=== PATIENT | male | born 2005 | race Caucasian/White ===

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

== ENCOUNTER 2024-02-16 10:01 | Emergency (ER) | payer OTHER ==
[~2024-02-16] VITALS: Ht 177.8 cm; Wt 115.4 kg
[2024-02-16 10:01] VITALS: O2SAT 98
[~2024-02-16 10:01] MED LIST changes: +DICY-61 PO; -DICY10CA13 PO; +MONT-5 PO; +RISP-105 PO; -RISP-7; -RISP-8 PO; +RISP0.5T82; -SING10TA32 PO; +TOPI-21 PO; -TOPI50TA9 PO
[2024-02-16] MEDS ORDERED: ACET-683 PO (10:18)
[2024-02-16 11:09] LABS: RSV AMPLIFICATION NEGATIVE (NEGATIVE)
[2024-02-16] MEDS: ONDANSETRON 4MG ORAL DISINTEGRATING TAB PO ONE (12:14)
[2024-02-16 12:38] LABS: BASO # 0.1 10^3/uL (0.0-0.2); BASO % 0.6 % (0.0-1.0); EOS % 0.2 % (0.0-3.0); HEMATOCRIT 45.2 % (42.0-52.0); HEMOGLOBIN 15.3 g/dl (13.5-17.5); LYMPH # 2.5 10^3/uL (1.5-5.0); LYMPH % 29.7 % (24.0-44.0); MEAN CORPUSCULAR HEMOGLOBIN 28.9 pg (27.0-33.0); MEAN CORPUSCULAR HGB CONC 33.8 g/dl (32.0-36.5); MEAN CORPUSCULAR VOLUME 85.3 fl (80.0-96.0); MONO # 0.5 10^3/uL (0.0-0.8); MONO % 6.4 % (2.0-8.0); NEUTROPHILS # 5.2 10^3/uL (1.5-8.5); NEUTROPHILS % 62.5 % (36.0-66.0); PLATELET COUNT, AUTOMATED 255 10^3/uL (150-450); WHITE BLOOD COUNT 8.3 10^3/uL (4.0-10.0)
[2024-02-16 13:03] LABS: ALBUMIN 4.1 G/DL (3.2-5.2); ALKALINE PHOSPHATASE 70 U/L (46-116); ALT/SGPT 32 U/L (7.0-40); AST/SGOT 17 U/L (<34); BILIRUBIN,TOTAL 0.6 MG/DL (0.3-1.2); BLOOD UREA NITROGEN 15 MG/DL (9-23); CALCIUM LEVEL 9.3 MG/DL (8.5-10.1); CARBON DIOXIDE LEVEL 24 MMOL/L (20-31); CHLORIDE LEVEL 107 MMOL/L (98-107); CREATININE FOR GFR 1.02 MG/DL (0.70-1.30); GLUCOSE, FASTING 95 MG/DL (60-100); POTASSIUM SERUM 4.2 MMOL/L (3.5-5.1); SODIUM LEVEL 138 MMOL/L (136-145); TOTAL PROTEIN 6.8 G/DL (5.7-8.2)
[2024-02-16] MEDS ORDERED: ONDA4TAB6 PO (13:10)
[2024-02-16 13:29] VITALS: BP 140/78; TEMP 97.8
== END 2024-02-16 13:30 | disposition home or self-care (01) ==
LOC: M ED 10:01
DX: R19.7 Diarrhea, unspecified (principal); B34.8 Other viral infections of unspecified site; Z79.1 Long term (current) use of non-steroidal anti-inflammatories (NSAID); Z79.899 Other long term (current) drug therapy

== ENCOUNTER 2024-11-19 12:41 | Emergency (ER) | payer OTHER, SELFPAY ==
[~2024-11-19] VITALS: Ht 177.8 cm; Wt 90.1 kg
[~2024-11-19 12:41] MED LIST changes: +ACET-683 PO; +ONDA-282 PO; -ONDA4TAB6 PO
[2024-11-19 12:57] VITALS: BP 141/79; TEMP 97.2; O2SAT 98
[2024-11-19] MEDS ORDERED: KEPP1TAB PO (18:55)
[2024-11-19] MEDS ORDERED: ZONI50CA11 PO (18:55)
== END 2024-11-19 14:57 | disposition left against medical advice (07) ==
LOC: EDUNIT# 12:41 → EDBD 12:41 → M ED 12:41
DX: Z53.21 Procedure and treatment not carried out due to patient leaving prior to being seen by health care provider (principal)

== ENCOUNTER 2024-11-19 17:33 | Inpatient (IN) | payer MEDICAID, OTHER, SELFPAY ==
[~2024-11-19] VITALS: Ht 172.7 cm; Wt 89.9 kg
[2024-11-19 18:21] LABS: HEMOGLOBIN 15.9 g/dl (13.5-17.5); MEAN CORPUSCULAR HEMOGLOBIN 28.9 pg (27.0-33.0); MEAN CORPUSCULAR HGB CONC 33.8 g/dl (32.0-36.5); MEAN CORPUSCULAR VOLUME 85.3 fl (80.0-96.0); PLATELET COUNT, AUTOMATED 282 10^3/uL (150-450); RED BLOOD COUNT 5.51 10^6/uL (4.30-6.10); WHITE BLOOD COUNT 11.6 10^3/uL (4.0-10.0)
[2024-11-19 18:42] LABS: AMPHETAMINES LEVEL URINE NEGATIVE (NEGATIVE); BARBITURATES URINE NEGATIVE (NEGATIVE); BENZODIAZEPINES URINE NEGATIVE (NEGATIVE); COCAINE METABOLITE URINE NEGATIVE (NEGATIVE); METHADONE URINE NEGATIVE (NEGATIVE); OPIATES URINE NEGATIVE (NEGATIVE); PHENCYCLIDINE URINE NEGATIVE (NEGATIVE)
[2024-11-19 18:44] LABS: ETHYL ALCOHOL (ETHANOL) < 0.003 % (0.000-0.010)
[2024-11-19 18:45] LABS: CANNABINOIDS URINE POSITIVE (NEGATIVE)
[2024-11-19 18:46] LABS: ALBUMIN 4.4 G/DL (3.2-5.2); ALKALINE PHOSPHATASE 80 U/L (40-129); ALT/SGPT 19 U/L (7.0-40); AST/SGOT 15 U/L (<34); BILIRUBIN,DIRECT 0.3 MG/DL (<0.4); BILIRUBIN,TOTAL 0.9 MG/DL (0.3-1.2); BLOOD UREA NITROGEN 23 MG/DL (9-23); CALCIUM LEVEL 9.2 MG/DL (8.5-10.1); CARBON DIOXIDE LEVEL 23 MMOL/L (20-31); CHLORIDE LEVEL 104 MMOL/L (98-107); CREATININE FOR GFR 1.07 MG/DL (0.70-1.30); GLUCOSE, FASTING 82 MG/DL (60-100); POTASSIUM SERUM 4.5 MMOL/L (3.5-5.1); SALICYLATE LEVEL < 3.0 MG/DL (<30); SODIUM LEVEL 139 MMOL/L (136-145); TOTAL PROTEIN 7.4 G/DL (5.7-8.2)
[2024-11-19 18:48] LABS: THYROID STIMULATING HORMONE 1.403 uIU/ML (0.48-4.17)
[2024-11-19] MEDS ORDERED: KEPP1TAB PO (18:55)
[2024-11-19] MEDS ORDERED: HOME MED LIST COMPLETE! XX SCH (18:55)
[2024-11-19] MEDS ORDERED: ZONI50CA11 PO (18:55)
[2024-11-19] MEDS ORDERED: ACETAMINOPHEN 325 MG TAB PO PRN (21:00)
[2024-11-19] MEDS ORDERED: LORazepam 1 MG TAB PO PRN (21:00)
[2024-11-19] MEDS ORDERED: IBUPROFEN 400MG TAB PO PRN (21:00)
[2024-11-19] MEDS ORDERED: diphenhydrAMINE 25MG CAP PO PRN (21:00)
[2024-11-19] MEDS ORDERED: MAALOX 30 ML SUSP *UDC PO PRN (21:00)
[2024-11-19] MEDS ORDERED: MOM 30ML SUSPENSION UDC PO PRN (21:00)
[2024-11-20 06:12] VITALS: BP 125/57; TEMP 97.8; O2SAT 97
[2024-11-20] MEDS: NICOTINE 14 MG/24 HR TRANSDERMAL TD SCH (09:18)
[2024-11-20] MEDS: levETIRAcetam 250MG TABLET (KEPPRA) PO SCH (09:18)
[2024-11-20] MEDS: ZONISAMIDE 50 MG CAP (ZONEGRAN) PO SCH (09:24)
[2024-11-20 15:43] VITALS: BP 136/70; TEMP 97.9; O2SAT 100
[2024-11-20] MEDS: LURASIDONE 20 MG TAB (LATUDA) PO SCH (18:21)
[2024-11-21 14:52] VITALS: BP 131/73; TEMP 98; O2SAT 100
[2024-11-21] MEDS: traZODone 50 MG TAB PO PRN (21:09)
[2024-11-22 06:46] VITALS: BP 110/67; TEMP 97.3; O2SAT 100
[2024-11-22 17:04] VITALS: BP 136/77; TEMP 98; O2SAT 96
[2024-11-23 06:47] VITALS: BP 126/73; TEMP 96.9; O2SAT 100
[2024-11-23 14:08] VITALS: BP 152/79; TEMP 97.6; O2SAT 100
[2024-11-23 14:25] VITALS: BP 161/76; TEMP 97.5; O2SAT 100
[2024-11-23] MEDS: LORazepam 2 MG/ML 1ML VIAL IM ONE (14:37)
[2024-11-23] MEDS: LORazepam 2 MG TAB PO ONE (14:45)
[2024-11-23 16:04] VITALS: BP 141/78; TEMP 97.4
[2024-11-24 06:48] VITALS: BP 115/53; TEMP 97; O2SAT 100
[2024-11-24 15:52] VITALS: BP 146/78; TEMP 97.7; O2SAT 99
[2024-11-24] MEDS: OLANZapine ORAL DISINTEGRATING TAB 5MG PO PRN (19:08)
[2024-11-25] MEDS: diphenhydrAMINE 50MG/ML VIAL IM STA (11:14)
[2024-11-25] MEDS: LORazepam 2 MG/ML 1ML VIAL IM STA (11:15)
[2024-11-25] MEDS: HALOPERIDOL LACTATE 5MG/ML VIAL IM STA ×2 (11:15→11:31)
[2024-11-25 13:00] VITALS: BP 118/60; TEMP 97.4; O2SAT 100
[2024-11-25 13:15] VITALS: BP 122/63; TEMP 97.2; O2SAT 100
[2024-11-25 17:19] VITALS: BP 123/73; TEMP 97.9; O2SAT 99
[2024-11-26 06:40] VITALS: BP 127/57; TEMP 97.5; O2SAT 100
[2024-11-26] MEDS ORDERED: TRAZ-252 PO (10:17)
[2024-11-26] MEDS ORDERED: OLAN5ZYD PO (10:17)
[2024-11-26] MEDS ORDERED: HYDR-3363 PO (10:17)
[2024-11-26] MEDS ORDERED: LATU20TA PO (10:17)
[2024-11-27] MEDS ORDERED: TRAZ-252 PO (11:09)
[2024-11-27] MEDS ORDERED: HYDR-3363 PO (11:09)
[2024-11-27] MEDS ORDERED: LATU20TA PO (11:09)
[2024-11-27] MEDS ORDERED: OLAN5ZYD PO (11:09)
== END 2024-11-26 14:04 | disposition home or self-care (01) | DRG 753 ==
LOC: M ED 17:33 → M ED INP 20:58 → M PSY 21:36
PROVIDERS: ADMIT Psychiatry & Neurology Neurology; ATTEND Psychiatry & Neurology Neurology
DX: F31.81 Bipolar II disorder (principal); F41.9 Anxiety disorder, unspecified; F60.3 Borderline personality disorder; G40.909 Epilepsy, unspecified, not intractable, without status epilepticus; R45.851 Suicidal ideations; F17.210 Nicotine dependence, cigarettes, uncomplicated; D72.829 Elevated white blood cell count, unspecified

== ENCOUNTER 2024-11-26 20:34 | Inpatient (IN) | payer MEDICAID, SELFPAY ==
[~2024-11-26] VITALS: Ht 162.6 cm; Wt 87.6 kg
[~2024-11-26 20:34] MED LIST changes: +HYDR-3363 PO; +KEPP1TAB PO; +LATU20TA PO; +OLAN5ZYD PO; +TRAZ-252 PO; +ZONI50CA11 PO
[2024-11-27] MEDS: ONDANSETRON 4MG 2ML VIAL IV ONE (05:57)
[2024-11-27 06:07] LABS: BASO % 0.3 % (0.0-1.0); EOS # 0.1 10^3/uL (0.0-0.5); EOS % 0.6 % (0.0-3.0); HEMATOCRIT 40.2 % (42.0-52.0); HEMOGLOBIN 13.5 g/dl (13.5-17.5); LYMPH # 3.4 10^3/uL (1.5-5.0); LYMPH % 35.7 % (24.0-44.0); MEAN CORPUSCULAR HGB CONC 33.6 g/dl (32.0-36.5); MEAN CORPUSCULAR VOLUME 86.5 fl (80.0-96.0); MONO # 0.6 10^3/uL (0.0-0.8); MONO % 6.3 % (2.0-8.0); NEUTROPHILS # 5.3 10^3/uL (1.5-8.5); NEUTROPHILS % 56.6 % (36.0-66.0); PLATELET COUNT, AUTOMATED 230 10^3/uL (150-450); RED BLOOD COUNT 4.65 10^6/uL (4.30-6.10); WHITE BLOOD COUNT 9.4 10^3/uL (4.0-10.0)
[2024-11-27] MEDS: ZONISAMIDE 25MG CAP (ZONEGRAN) PO STA (06:18)
[2024-11-27 06:30] LABS: BLOOD UREA NITROGEN 10 MG/DL (9-23); CALCIUM LEVEL 8.6 MG/DL (8.5-10.1); CARBON DIOXIDE LEVEL 27 MMOL/L (20-31); CHLORIDE LEVEL 108 MMOL/L (98-107); CREATININE FOR GFR 1.08 MG/DL (0.70-1.30); GLUCOSE, FASTING 86 MG/DL (60-100); MAGNESIUM LEVEL 1.8 MG/DL (1.8-2.4); POTASSIUM SERUM 3.9 MMOL/L (3.5-5.1); SODIUM LEVEL 143 MMOL/L (136-145)
[2024-11-27 06:40] LABS: ETHYL ALCOHOL (ETHANOL) < 0.003 % (0.000-0.010)
[2024-11-27 06:41] LABS: SALICYLATE LEVEL < 3.0 MG/DL (<30)
[2024-11-27 06:44] LABS: THYROID STIMULATING HORMONE 1.964 uIU/ML (0.48-4.17)
[2024-11-27] MEDS: levETIRAcetam 250MG TABLET (KEPPRA) PO ONE (08:11)
[2024-11-27] MEDS ORDERED: OLANZapine 5 MG TAB PO PRN (09:35)
[2024-11-27] MEDS ORDERED: traZODone 50 MG TAB PO PRN (09:35)
[2024-11-27 10:49] LABS: AMPHETAMINES LEVEL URINE NEGATIVE (NEGATIVE); BARBITURATES URINE NEGATIVE (NEGATIVE); BENZODIAZEPINES URINE NEGATIVE (NEGATIVE)
[2024-11-27 10:50] LABS: COCAINE METABOLITE URINE NEGATIVE (NEGATIVE); METHADONE URINE NEGATIVE (NEGATIVE); OPIATES URINE NEGATIVE (NEGATIVE); PHENCYCLIDINE URINE NEGATIVE (NEGATIVE)
[2024-11-27 11:09] LABS: CANNABINOIDS URINE POSITIVE (NEGATIVE)
[2024-11-27] MEDS ORDERED: OLAN5ZYD PO (11:09)
[2024-11-27] MEDS ORDERED: HYDR-3363 PO (11:09)
[2024-11-27] MEDS ORDERED: TRAZ-252 PO (11:09)
[2024-11-27] MEDS ORDERED: LATU20TA PO (11:09)
[2024-11-27] MEDS ORDERED: HOME MED LIST COMPLETE! XX SCH (11:10)
[2024-11-27] MEDS: LURASIDONE 20 MG TAB (LATUDA) PO SCH (11:40)
[2024-11-27 17:50] VITALS: BP 140/86; TEMP 96.9; O2SAT 100
[2024-11-27] MEDS: IBUPROFEN 400MG TAB PO ONE (19:23)
[2024-11-27] MEDS ORDERED: MOM 30ML SUSPENSION UDC PO PRN (19:30)
[2024-11-27] MEDS ORDERED: ACETAMINOPHEN 325 MG TAB PO PRN (19:30)
[2024-11-27] MEDS ORDERED: diphenhydrAMINE 25MG CAP PO PRN (19:30)
[2024-11-27] MEDS: MAALOX 30 ML SUSP *UDC PO PRN (20:34)
[2024-11-27] MEDS: traZODone 50 MG TAB PO PRN (20:34)
[2024-11-27] MEDS ORDERED: ZONISAMIDE 50 MG CAP (ZONEGRAN) PO SCH (21:00)
[2024-11-27] MEDS ORDERED: levETIRAcetam 250MG TABLET (KEPPRA) PO SCH (21:00)
[2024-11-28 06:23] VITALS: BP 116/75; TEMP 97.8; O2SAT 95
[2024-11-28] MEDS: levETIRAcetam 250MG TABLET (KEPPRA) PO SCH (12:01)
[2024-11-28] MEDS: LURASIDONE 20 MG TAB (LATUDA) PO SCH (12:01)
[2024-11-28] MEDS: ZONISAMIDE 50 MG CAP (ZONEGRAN) PO SCH (14:18)
[2024-11-28] MEDS: NICOTINE 21MG/24HR 1 EA TRANSDERMAL TD SCH (15:35)
[2024-11-28 16:18] VITALS: BP 143/68; TEMP 97.7; O2SAT 100
[2024-11-28] MEDS: OMEPRAZOLE 20MG CAP PO SCH (20:21)
[2024-11-29 06:56] VITALS: BP 119/64; TEMP 97.1; O2SAT 97
[2024-11-29 16:31] VITALS: BP 134/88; TEMP 97.7; O2SAT 100
[2024-11-29 22:32] VITALS: BP 134/92
[2024-11-30 06:28] VITALS: BP 101/55; TEMP 98.3; O2SAT 100
[2024-11-30] MEDS: OLANZapine ORAL DISINTEGRATING TAB 5MG PO PRN (09:16)
[2024-11-30 15:55] VITALS: BP 139/83; TEMP 98.2; O2SAT 99
[2024-11-30] MEDS: IBUPROFEN 400MG TAB PO PRN (20:46)
[2024-12-01 06:34] VITALS: BP 103/61; TEMP 98.1; O2SAT 99
[2024-12-01 15:27] VITALS: BP 138/74; TEMP 98.2; O2SAT 100
[2024-12-02] MEDS ORDERED: ZONI50CA11 PO (02:15)
[2024-12-02] MEDS ORDERED: LATU20TA PO (02:15)
[2024-12-02] MEDS ORDERED: TRAZ-252 PO (02:15)
[2024-12-02] MEDS ORDERED: HYDR-3363 PO (02:15)
[2024-12-02] MEDS ORDERED: KEPP1TAB PO (02:15)
[2024-12-02 06:28] VITALS: BP 112/64; TEMP 97.3; O2SAT 98
== END 2024-12-02 12:23 | disposition home or self-care (01) | DRG 753 ==
LOC: M ED 20:34 → M ED INP 11-27 15:31 → M PSY 11-27 16:25
PROVIDERS: ADMIT Psychiatry & Neurology Psychiatry; ATTEND Psychiatry & Neurology Psychiatry
DX: F31.81 Bipolar II disorder (principal); G40.909 Epilepsy, unspecified, not intractable, without status epilepticus; R45.851 Suicidal ideations; F60.3 Borderline personality disorder; Z59.89 Other problems related to housing and economic circumstances; Z79.899 Other long term (current) drug therapy; K64.8 Other hemorrhoids; K21.9 Gastro-esophageal reflux disease without esophagitis; K29.70 Gastritis, unspecified, without bleeding; F41.9 Anxiety disorder, unspecified

== ENCOUNTER 2025-04-15 19:28 | Emergency (ER) | payer MEDICAID, OTHER ==
[~2025-04-15] VITALS: Ht 172.7 cm; Wt 92.3 kg
[~2025-04-15 19:28] MED LIST changes: +TOPI-14 PO; -TOPI200T7 PO
[2025-04-15 19:30] VITALS: TEMP 98.4
[2025-04-15] MEDS ORDERED: ISOVUE-370 76% 100 ML VIAL As Ordered ONE (21:42)
[2025-04-15] MEDS: PANTOPRAZOLE 40MG VIAL IV ONE (21:45)
[2025-04-15] MEDS: ONDANSETRON 4MG 2ML VIAL IV ONE (21:45)
[2025-04-15] MEDS: NS (Normal Saline) 0.9% 1,000 ML IV ONE (21:45)
[2025-04-15 21:51] LABS: BASO # 0.1 10^3/uL (0.0-0.2); BASO % 0.5 % (0.0-1.0); EOS # 0.0 10^3/uL (0.0-0.5); EOS % 0.2 % (0.0-3.0); LYMPH # 2.4 10^3/uL (1.5-5.0); LYMPH % 24.0 % (24.0-44.0); MONO # 0.7 10^3/uL (0.0-0.8); MONO % 6.5 % (2.0-8.0); NEUTROPHILS # 6.9 10^3/uL (1.5-8.5); NEUTROPHILS % 68.3 % (36.0-66.0); PLATELET COUNT, AUTOMATED 285 10^3/uL (150-450)
[2025-04-15 22:02] LABS: INR 0.91
[2025-04-15 22:23] LABS: ALT/SGPT 18 U/L (7.0-40); AST/SGOT 26 U/L (<34); CALCIUM LEVEL 8.9 MG/DL (8.5-10.1); CARBON DIOXIDE LEVEL 26 MMOL/L (20-31); CHLORIDE LEVEL 106 MMOL/L (98-107); CREATININE FOR GFR 1.12 MG/DL (0.70-1.30); GLOMERULAR FILTRATION RATE > 90.0 (>60); POTASSIUM SERUM 4.3 MMOL/L (3.5-5.1); SODIUM LEVEL 146 MMOL/L (136-145)
[2025-04-16] MEDS: LIDOCAINE VISCOUS 2% SOLN 15 ML UDC PO ONE (00:05)
[2025-04-16] MEDS: MAALOX 30 ML SUSP *UDC PO ONE (00:05)
[2025-04-16] MEDS: HYOSCYAMINE SULFATE 0.125 MG SUBL TABLET PO ONE (00:05)
[2025-04-16] MEDS: KETOROLAC 30 MG/ML 1 ML VIAL IV ONE (00:05)
[2025-04-16 00:29] LABS: KETONE, URINE AUTO RFX NEGATIVE (NEGATIVE); LEUKOCYTE ESTERASE UR AUTO RFX NEGATIVE (NEGATIVE); NITRITE, URINE AUTO RFX NEGATIVE (NEGATIVE); RBC, URINE AUTO RFX 1 /HPF (0-3); SQUAM EPITHELIAL CELL UR AURFX 0 /HPF (0-6); WBC, URINE AUTO RFX 1 /HPF (0-3)
[2025-04-16 01:00] VITALS: O2SAT 98
[2025-04-16] MEDS ORDERED: ONDA-282 PO (01:13)
[2025-04-16] MEDS ORDERED: SUCR1SS PO (01:13)
[2025-04-16 01:15] VITALS: BP 137/88
== END 2025-04-16 01:38 | disposition home or self-care (01) ==
LOC: M ED 19:28
DX: K29.00 Acute gastritis without bleeding (principal); F41.9 Anxiety disorder, unspecified; F32.A Depression, unspecified; K58.9 Irritable bowel syndrome, unspecified; G40.909 Epilepsy, unspecified, not intractable, without status epilepticus; F12.10 Cannabis abuse, uncomplicated; F17.200 Nicotine dependence, unspecified, uncomplicated; Z79.83 Long term (current) use of bisphosphonates; Z79.899 Other long term (current) drug therapy
CPT/HCPCS: 71045; 74177; 80047; 80048; 80076; 81001; 83605; 83690; 85025; 85610; 85730; 87486; 87581; 87633; 87798; 93041; 96361; 96374; 96375; 99284; J1885; J2405; J2470; Q9967

== ENCOUNTER → 2025-06-04 | Outpatient (CLI) | payer OTHER ==
[~2025-06-04] MED LIST changes: -IBUP-1022 PO; +IBUP600T42 PO; +SUCR1SS PO
== END ==
LOC: M RAD 12:30
DX: S62.643A Nondisplaced fracture of proximal phalanx of left middle finger, initial encounter for closed fracture (principal); R22.32 Localized swelling, mass and lump, left upper limb; W22.09XA Striking against other stationary object, initial encounter; Y93.9 Activity, unspecified; Y92.9 Unspecified place or not applicable

== ENCOUNTER 2025-07-02 13:07 | Emergency (ER) | payer OTHER ==
[~2025-07-02] VITALS: Ht 177.8 cm; Wt 92.2 kg
[2025-07-02] MEDS: LIDOCAINE 5% PATCH TD ONE (13:56)
[2025-07-02] MEDS: KETOROLAC 30 MG/ML 1 ML VIAL IM ONE (13:56)
[2025-07-02] MEDS: ACETAMINOPHEN 500 MG TAB PO ONE (15:04)
[2025-07-02] MEDS ORDERED: METH-1164 PO (15:44)
[2025-07-02] MEDS ORDERED: IBUP600T42 PO (15:44)
[2025-07-02 15:53] VITALS: BP 142/90; TEMP 96.9; O2SAT 97
== END 2025-07-02 15:56 | disposition home or self-care (01) ==
LOC: M ED 14:14
DX: M54.50 Low back pain, unspecified (principal); Z79.1 Long term (current) use of non-steroidal anti-inflammatories (NSAID); Z79.899 Other long term (current) drug therapy; Z79.83 Long term (current) use of bisphosphonates
CPT/HCPCS: 96372; 99283; J1885

== ENCOUNTER 2025-07-07 01:32 | Emergency (ER) | payer OTHER ==
[~2025-07-07] VITALS: Ht 177.8 cm; Wt 38.6 kg
[~2025-07-07 01:32] MED LIST changes: +METH-1164 PO
[2025-07-07 02:11] LABS: PLATELET COUNT, AUTOMATED 259 10^3/uL (150-450)
[2025-07-07 02:31] LABS: AMPHETAMINES LEVEL URINE NEGATIVE (NEGATIVE); BARBITURATES URINE NEGATIVE (NEGATIVE); BENZODIAZEPINES URINE NEGATIVE (NEGATIVE); COCAINE METABOLITE URINE NEGATIVE (NEGATIVE); METHADONE URINE NEGATIVE (NEGATIVE); OPIATES URINE NEGATIVE (NEGATIVE); PHENCYCLIDINE URINE NEGATIVE (NEGATIVE)
[2025-07-07 02:35] LABS: ALT/SGPT 24 U/L (7.0-40); CALCIUM LEVEL 8.9 MG/DL (8.5-10.1); CARBON DIOXIDE LEVEL 26 MMOL/L (20-31); CHLORIDE LEVEL 106 MMOL/L (98-107); CREATININE FOR GFR 1.02 MG/DL (0.70-1.30); GLOMERULAR FILTRATION RATE > 90.0 (>60); POTASSIUM SERUM 4.5 MMOL/L (3.5-5.1); SALICYLATE LEVEL < 3.0 MG/DL (<30); SODIUM LEVEL 141 MMOL/L (136-145)
[2025-07-07 03:34] LABS: CANNABINOIDS URINE POSITIVE (NEGATIVE)
[2025-07-07 03:43] LABS: ETHYL ALCOHOL (ETHANOL) 0.033 % (0.000-0.010)
[2025-07-07 09:08] VITALS: BP 128/68; TEMP 98; O2SAT 99
[2025-07-08 07:13] LABS: AST/SGOT 28 U/L (<34)
== END 2025-07-07 09:10 | disposition home or self-care (01) ==
LOC: M ED 01:32
DX: F19.10 Other psychoactive substance abuse, uncomplicated (principal); F39 Unspecified mood [affective] disorder; F31.9 Bipolar disorder, unspecified; F17.200 Nicotine dependence, unspecified, uncomplicated; F12.10 Cannabis abuse, uncomplicated; F10.10 Alcohol abuse, uncomplicated; Z79.1 Long term (current) use of non-steroidal anti-inflammatories (NSAID); Z79.83 Long term (current) use of bisphosphonates; Z79.899 Other long term (current) drug therapy